=== PATIENT | female | born 1995 | race Caucasian/White ===

== ENCOUNTER 2021-05-16 05:08 | Inpatient (IN) | payer OTHER ==
[~2021-05-16] VITALS: Ht 162.6 cm; Wt 99.8 kg
[2021-05-16] MEDS ORDERED: PRENATA CHEWAB1 EACH PO (05:50)
[2021-05-16] MEDS ORDERED: PEPCID AC10 MG PO (05:51)
--- NOTE | 2021-05-16 06:15 | NUR ---
COVID SWAB DONE TO BOTH NARES.
--- NOTE | 2021-05-17 08:56 | PR ---
[facility] [address] [facility] [place], [place] [address] Signed PP Progress Notes Datetime Report Generated by VIVIANA: 05/17/2021 08:56 SUBJECTIVE: [id number] Pain: Within Normal Limits Vital Signs: [id number] Vital Signs: Reviewed; Within Normal Limits EXAM: Ongoing Cardiovascular: Not Done Respiratory: Not Done Abdomen/Uterus: Abnormal Lochia: Normal Vulva/Perineum: Not Done Breasts: Not Done CVA Tenderness: Not Done Extremities: Normal Incision: Not Applicable Progress: Abnormal Exam Comments: Fundus firm, NT @ U-2. H/H 11.1/34.6, WBC 16.1, plat 281k IMPRESSION/PLAN/PROCEDURES: [id number] Impression: Normal Progression; Difficulties Plan: Continue Present Management; Consult Progress Notes: Pt is doing well at this time. She is diuresing and BPs are good. CBC is good though CMP is still pending. Baby is not nursing well given his early gestation. Will continue to work on this. Discussed probability she will become boarder mom tomorrow as unlikely baby will be ready for D/C. Signing Physician: Abby Jacobson MD Copies: ~ *Electronically Signed* 05/17/21 0856 ABBY JACOBSON MD PATIENT NAME: SUHAS NAVARRO PROGRESS NOTE DATE OF : [birth year] PHYSICIAN: ABBY JACOBSON MD RPT #: [id number] REPORT IS CONFIDENTIAL AND NOT TO BE RELEASED WITHOUT AUTHORIZATION
--- NOTE | 2021-05-18 09:37 | PR ---
[facility] [address] [facility] [place], [place] [address] Signed PP Progress Notes Datetime Report Generated by CPRoverto: 05/18/2021 09:37 SUBJECTIVE: [id number] Pain: Within Normal Limits Bowel Movement: Yes Vital Signs: [id number] Vital Signs: Reviewed; Within Normal Limits EXAM: Ongoing Cardiovascular: Not Done Respiratory: Not Done Abdomen/Uterus: Abnormal Lochia: Normal Vulva/Perineum: Not Done Breasts: Not Done CVA Tenderness: Not Done Extremities: Abnormal Incision: Not Applicable Progress: Abnormal Exam Comments: Fundus firm, NT @ U-2 2+ LE edema Neg calf tenderness IMPRESSION/PLAN/PROCEDURES: [id number] Impression: Normal Progression; Difficulties Plan: Discharge Progress Notes: She is doing well overall though baby still not nursing well. I feel she is stable for D/C and will become boarder as baby still needing feeding support. Signing Physician: Abby Jacobson MD Copies: ~ *Electronically Signed* 05/18/21 0937 ABBY JACOBSON MD PATIENT NAME: SUHAS NAVARRO PROGRESS NOTE DATE OF : [birth year] PHYSICIAN: ABBY JACOBSON MD RPT #: [id number] REPORT IS CONFIDENTIAL AND NOT TO BE RELEASED WITHOUT AUTHORIZATION
--- NOTE | 2021-05-21 14:42 | PATH ---
[facility] [address] [place], [place] [address] Signed SPECIMEN(S): A PLACENTA, 3RD TRIMESTER SPECIMEN SOURCE: A. PLACENTA, 3RD TRIMESTER CLINICAL HISTORY: Mother's age: 27. OB history: G1, P0, A0. Gestational age: 35. score: 9/9. Rh negative. Maternal serologies: Rubella immune, hepatitis screen negative, GBS negative. Specific issues of concern: premature rupture of membranes at 35 weeks; preeclampsia. FINAL PATHOLOGIC DIAGNOSIS: Placenta (347.7 grams), umbilical cord and membranes: - Chorionic villi with: - Appropriate maturation for gestational age. - Focal microcalcifications. 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 - Intervillous fibrin and hemorrhage (focal). - Three-vessel umbilical cord with no pathologic abnormality. - membranes with early meconium staining. DDF:em:C2NR MICROSCOPIC EXAMINATION: Histologic sections of all submitted blocks are examined by light microscopy. These findings, together with the gross examination, support the pathologic diagnosis. GROSS DESCRIPTION: The specimen, labeled "ED, placenta," is received fresh and placed in formalin and consists of a garcia discoid placenta with the following parameters: Umbilical cord: Insertion: The cord has been previously torn from the disc in a grossly definitive insertion site cannot be determined. Measurement 51.7 x up to 1.0cm; trivascular. Cord coiling index (per 10 cm): 2. Lesions: Not grossly identified. Membranes: Insertion site: Marginal, hull to pink, translucent, rupture site grossly indeterminate. Intact. Other: Not grossly identified. Chorionic Plate: Normal radiating vascular pattern, blue-purple, and shiny. Lesions: Not grossly identified. Other: Not grossly identified. Maternal Surface: Normal cotyledons, intact. Lesions: Not grossly identified. Measurement: 15.4 x 13.2 x 2.5 cm. Weight (trimmed): 347.7 g PATIENT NAME: SUHAS NAVARRO PATHOLOGY DATE OF : [birth year] REPORT #: [id number] PHYSICIAN: CECILIO PATHOLOGY PCP: OTHER PCP REPORT IS CONFIDENTIAL AND NOT TO BE RELEASED WITHOUT AUTHORIZATION [facility] [address] [place], [place] [address] Signed Cut Surface: Maroon and spongy. Lesions: One, central, 2.0 cm in greatest dimension area of hull-white consolidation that grossly appears to abut the maternal surface. An additional discrete mass/lesion is not grossly identified. Basal plate fibrin is 0.1 cm in thickness. Other Findings: Not grossly identified. Cassette Summary: (A1) membranes and umbilical cord (A2) central section of placenta including area of consolidation (A3) eccentric section of placenta (A4) eccentric section of placenta. AI (under the direct supervision of a pathologist) NOTE: The specimen arrived 05/16/21 and was held in the refrigerator while the request for testing was clarified. The specimen was placed in formalin on 05/19/21 at 12:30pm. The Gross Description was prepared using a voice recognition system. The report was reviewed for accuracy; however, sound-alike word errors, addition and/or deletions may occur. If there is any question about this report, please contact Client Services. PERFORMING LABORATORY: The technical component was performed by [facility], [address] [place] [id number] (Staff [employer] Officer: Meri Robertson MD; CLIA# [id number]). The professional interpretation was performed by [facility], [facility], [address] [place] [address]. Diagnostician: John Ordoñez DO Pathologist Electronically Signed 05/21/2021 Copies: ~ PATIENT NAME: SUHAS NAVARRO PATHOLOGY DATE OF : [birth year] REPORT #: [id number] PHYSICIAN: CECILIO SINGLETON PCP: OTHER PCP REPORT IS CONFIDENTIAL AND NOT TO BE RELEASED WITHOUT AUTHORIZATION
== END 2021-05-18 13:30 | disposition home or self-care (01) | DRG 768 ==
LOC: FBCO → FBC 05:30 → FBCO 06-15 10:14
PROVIDERS: ADMIT Obstetrics & Gynecology; ATTEND Obstetrics & Gynecology
PROC: 10E0XZZ Delivery of Products of Conception, External Approach (ICD-10-PCS; principal; 2021-05-16)
PROC: 0UQJXZZ Repair Clitoris, External Approach (ICD-10-PCS; 2021-05-16)
PROC: 0HQ9XZZ Repair Perineum Skin, External Approach (ICD-10-PCS; 2021-05-16)
DX: O42.013 Preterm premature rupture of membranes, onset of labor within 24 hours of rupture, third trimester (principal); Z37.0 Single live birth; Z20.822 Contact with and (suspected) exposure to COVID-19; Z3A.35 35 weeks gestation of pregnancy; O70.0 First degree perineal laceration during delivery; Z67.40 Type O blood, Rh positive; O14.94 Unspecified pre-eclampsia, complicating childbirth; O76 Abnormality in fetal heart rate and rhythm complicating labor and delivery
CPT/HCPCS: 01960; 80053; 82565; 82570; 84156; 84450; 84520; 84550; 85027; 86850; 86900; 86901; A9270; C9803; J1644; J2590; J2795; J3010; J7121; U0003

== ENCOUNTER 2024-04-13 07:47 | Inpatient (IN) | payer OTHER ==
[~2024-04-13] VITALS: Ht 160 cm; Wt 106.6 kg
[~2024-04-13 07:47] MED LIST: PEPCID AC10 MG PO; PRENATA CHEWAB1 EACH PO
[2024-04-13] MEDS ORDERED: CALCIUM CARBONATE 500 MG CHEW PO PRN ×2 (08:45→17:15)
[2024-04-13] MEDS ORDERED: OXYTOCIN/DEXTROSE 5% 20 UNITS/100 ML BAG IV SCH (08:45)
[2024-04-13] MEDS ORDERED: MAGNESIUM HYDROXIDE/AL HYDROX 30 ML CUP PO PRN ×2 (08:45→17:15)
[2024-04-13 08:55] LABS: HEMATOCRIT 35.5 % (35.0-50.0); HEMOGLOBIN 11.8 g/dL (12.0-18.0); MCH 27.3 (27-36); MCHC 33.2 g/dl (30-36); MCV 82.4 fl (81-99); RBC 4.31 M/ul (4.3-5.7); RDW 15.1 (10.5-15.0)
[2024-04-13 09:13] LABS: AMPHETAMINES, URINE NEGATIVE (NEGATIVE); BARBITURATES, URINE NEGATIVE (NEGATIVE); BENZODIAZEPINE, URINE NEGATIVE (NEGATIVE); BUPRENORPHINE, URINE NEGATIVE (NEGATIVE); CANNABINOID, URINE NEGATIVE (NEGATIVE); COCAINE, URINE NEGATIVE (NEGATIVE); ECSTASY, URINE NEGATIVE (NEGATIVE); FENTANYL, URINE NEGATIVE (NEGATIVE); METHADONE, URINE NEGATIVE (NEGATIVE); OPIATES, URINE NEGATIVE (NEGATIVE); OXYCODONE, URINE NEGATIVE (NEGATIVE); PHENCYCLIDINE, URINE NEGATIVE (NEGATIVE)
[2024-04-13] MEDS ORDERED: ROPIVACAINE 0.2% 200 ML BAG ONE (09:13)
[2024-04-13] MEDS ORDERED: ePHEDrine KIT FOR FBC IV ONE (09:50)
[2024-04-13 09:55] LABS: ABO O; ANTIBODY SCREEN NEGATIVE; RH POSITIVE
[2024-04-13] MEDS ORDERED: ROPIVACAINE 0.2% 200 ML BAG EPIDURAL SCH (10:00)
[2024-04-13] MEDS ORDERED: ePHEDrine sulfate 5 MG/ML SYRINGE IV PRN (10:00)
[2024-04-13] MEDS ORDERED: LACTATED RINGER'S 500 ML IV PRN (10:00)
[2024-04-13] MEDS ORDERED: LACTATED RINGER'S 2,000 ML IV ONE (10:00)
[2024-04-13 11:10] VITALS: BP 109/62
--- NOTE | 2024-04-13 15:58 | PR ---
[facility] [address] [facility] [place], [place] [address] Signed Progress Notes IP Datetime Report Generated by CPN: 04/13/2024 15:58 PROGRESS NOTES: [id number] Impression: Normal Progression of Labor; Reassuring Heart Rate Procedures: Sterile Vag Exam Plan: Continue Present Management; Anticipate Vaginal Delivery Informed Consent Obtain: Vaginal Delivery VITAL SIGNS: [id number] Vital Signs: Reviewed; Within Normal Limits EXAM: [id number] Dilatation: 10.0 Effacement: 100 Station: 0 Contractions: q 2-3 min MEMBRANES: [id number] Comments: Pt seen and examined. Doing well. Comfortable w/ contractions. Complete. Anticipate soon. Will start pushing FETUS A: [id number] FHR Baseline: 135 Variability: Minimal - >Undetectable to <=5bpm Accelerations: 15X15 Decelerations: Late; Prolonged FHR Category: Category II Presentation: Vertex Comments on Fetus A: no evidence of metabolic acidosis. Possible variable w/ check FETUS B: [id number] Signing Physician: Sydney Voss DO Copies: ~ *Electronically Signed* 04/13/24 8313 SYDNEY VOSS (ENDY) DO PATIENT NAME: SUHAS NAVARRO PROGRESS NOTE DATE OF : [birth year] PHYSICIAN: SYDNEY VOSS) DO RPT #: [id number] REPORT IS CONFIDENTIAL AND NOT TO BE RELEASED WITHOUT AUTHORIZATION
[2024-04-13] MEDS ORDERED: OXYTOCIN/0.9 % SODIUM CHLORIDE 500 ML IV SCH (17:15)
[2024-04-13] MEDS ORDERED: HYDROCORTISONE ACETATE 25 MG SUPP PR PRN (17:15)
[2024-04-13] MEDS ORDERED: HYDROCODONE/ACETA 5/325 TAB PO PRN (17:15)
[2024-04-13] MEDS ORDERED: MAGNESIUM HYDROXIDE 30 ML UDC PO PRN (17:15)
[2024-04-13] MEDS ORDERED: BENZOCAINE 60 ML AEROSOL TOP PRN (17:15)
[2024-04-13] MEDS ORDERED: IBUPROFEN 600 MG TAB PO PRN (17:15)
[2024-04-13] MEDS ORDERED: OXYCODONE HCL 5 MG TAB PO PRN (17:15)
[2024-04-13] MEDS ORDERED: WITCH HAZEL/GLYCERIN 1 EA PAD TOP PRN (17:15)
[2024-04-13] MEDS ORDERED: ACETAMINOPHEN 325 MG TAB PO PRN (17:15)
[2024-04-13] MEDS ORDERED: OXYCODONE/APAP 5/325 TAB PO PRN (17:15)
[2024-04-13] MEDS ORDERED: SENNOSIDES/DOCUSATE 1 EA TAB PO SCH (21:00)
[2024-04-14 05:33] LABS: HEMATOCRIT 32.1 % (35.0-50.0); HEMOGLOBIN 10.6 g/dL (12.0-18.0); MCH 27.2 (27-36); MCHC 33.1 g/dl (30-36); MCV 82.1 fl (81-99); RBC 3.91 M/ul (4.3-5.7); RDW 14.9 (10.5-15.0)
--- NOTE | 2024-04-14 17:30 | PR ---
[facility] [address] [facility] [place], [place] [address] Signed PP Progress Notes Datetime Report Generated by CPN: 04/14/2024 17:30 SUBJECTIVE: [id number] Pain: Within Normal Limits Flatus: Yes Bowel Movement: Yes Vital Signs: [id number] Vital Signs: Reviewed; Within Normal Limits Cardiovascular: Normal Respiratory: Normal Abdomen/Uterus: Normal Lochia: Normal Vulva/Perineum: Not Done Breasts: Not Done CVA Tenderness: Normal Extremities: Normal Incision: Not Applicable Progress: Normal Exam Comments: Fundus firm U-2 nontender IMPRESSION/PLAN/PROCEDURES: [id number] Impression: Normal Progression Plan: Discharge Progress Notes: Pt seen and examined. Doing well. Ambulating, voiding, and tolerating full diet. Pain and lochia minimal. well. No fevers/chills/other concerns. Desires d/c home. Reviewed d/c instructions and medications. All questions answered. FU 2 wk in office. Partner s/p vasectomy Signing Physician: Sydney Voss DO Copies: ~ *Electronically Signed* 04/14/24 9737 SYDNEY VOSS (ENDY) DO PATIENT NAME: SUHAS NAVARRO PROGRESS NOTE DATE OF : [birth year] PHYSICIAN: SYDNEY VOSS) DO RPT #: [id number] REPORT IS CONFIDENTIAL AND NOT TO BE RELEASED WITHOUT AUTHORIZATION
== END 2024-04-14 17:55 | disposition home or self-care (01) | DRG 806 ==
LOC: FBCO 07:47 → FBC 08:20
PROVIDERS: ADMIT Obstetrics & Gynecology; ATTEND Obstetrics & Gynecology
PROC: 10E0XZZ Delivery of Products of Conception, External Approach (ICD-10-PCS; principal; 2024-04-14)
PROC: 10907ZC Drainage of Amniotic Fluid, Therapeutic from Products of Conception, Via Natural or Artificial Opening (ICD-10-PCS; 2024-04-14)
PROC: 3E0R3BZ Introduction of Anesthetic Agent into Spinal Canal, Percutaneous Approach (ICD-10-PCS; 2024-04-14)
PROC: 00HU33Z Insertion of Infusion Device into Spinal Canal, Percutaneous Approach (ICD-10-PCS; 2024-04-14)
DX: O77.0 Labor and delivery complicated by meconium in amniotic fluid (principal); O98.32 Other infections with a predominantly sexual mode of transmission complicating childbirth; Z37.0 Single live birth; O69.81X0 Labor and delivery complicated by cord around neck, without compression, not applicable or unspecified; Z3A.39 39 weeks gestation of pregnancy; Z98.890 Other specified postprocedural states; A60.00 Herpesviral infection of urogenital system, unspecified
CPT/HCPCS: 01960; 36415; 80307; 85027; 86850; 86900; 86901; A9270; J2590; J2795; J7121